=== PATIENT | female | born 1985 | race Two or more races ===

== ENCOUNTER 2018-08-10 21:27 | Emergency (ER) | payer SELFPAY ==
[~2018-08-10] VITALS: Ht 154.9 cm; Wt 88.6 kg
[2018-08-11] MEDS ORDERED: SODIUM CHLORIDE 0.9% 1,000 ML IV ONE (06:16)
[2018-08-11] MEDS ORDERED: KETOROLAC 30MG/ML VIAL IV STA (06:16)
[2018-08-11] MEDS ORDERED: METOCLOPRAMIDE HCL 10MG/2ML VIAL IV STA (06:16)
[2018-08-11] MEDS ORDERED: FAMOTIDINE 20MG/2ML VIAL IV STA (06:16)
[2018-08-11 07:00] LABS: CLARITY URINE TURBID (CLEAR); COLOR URINE YELLOW (YELLOW); KETONES URINE NEGATIVE (NEGATIVE); LEUKOCYTE ESTERASE URINE NEGATIVE (NEGATIVE); NITRITE URINE NEGATIVE (NEGATIVE); OCCULT BLOOD URINE NEGATIVE (NEGATIVE); PH URINE >=9.0 (4.5-8.0); PROTEIN URINE NEGATIVE (NEGATIVE); SPECIFIC GRAVITY URINE 1.022 (1.005-1.030); UROBILINOGEN URINE 0.2 E.U./dL (0.2-1.0)
[2018-08-11 07:25] LABS: CHLORIDE 103 mEq/L (98-107)
[2018-08-11 07:31] LABS: BASOPHILS % 0.4 % (0.0-2.0); EOSINOPHILS % 1.2 % (0.0-5.0); HEMATOCRIT. 36.9 % (36.0-48.0); HEMOGLOBIN. 12.1 g/dL (12.0-16.0); LYMPHOCYTES % 25.8 % (20.0-50.0); MEAN CORPUSCULAR HEMOGLOBIN 25.9 pg (28.0-32.0); MEAN CORPUSCULAR VOLUME 78.8 fL (81.0-99.0); MEAN PLATELET VOLUME 7.1 fl (7.4-10.4); MONOCYTES % 4.6 % (2.0-8.0); PLATELET 389 x1000/uL (130-400); RED BLOOD CELL COUNT 4.68 mill/uL (4.2-5.4)
[2018-08-11 08:00] VITALS: BP 110/71
== END 2018-08-11 08:15 | disposition home or self-care (01) ==
LOC: ER 21:27
DX: K80.80 Other cholelithiasis without obstruction (principal); N39.0 Urinary tract infection, site not specified; R03.0 Elevated blood-pressure reading, without diagnosis of hypertension
CPT/HCPCS: 36415; 76705; 80053; 81003; 81025; 83690; 85025; 87086; 93005; 96361; 96374; 96375; 99284; J1885; J2765; J3490; J7030